=== PATIENT | male | born 1990 | race Caucasian/White ===

== ENCOUNTER 2016-09-25 14:10 | Emergency (ER) | payer BC, MEDICAID ==
[~2016-09-25] VITALS: Ht 177.8 cm; Wt 88.5 kg
[~2016-09-25 14:10] MED LIST: OMEPRAZOLE; VICODIN
[2016-09-25 14:27] VITALS: BP 160/105; PULSE 94; RESP 16; TEMP 97.6; O2SAT 97
--- NOTE | 2016-09-25 14:36 | NUR ---
Patient to ER bed 3 to gown for evaluation. Side rails up. Report given to CARMEL CEDILLO.
--- NOTE | 2016-09-25 14:50 | NUR ---
MD BOOTH AT BEDSIDE.
[2016-09-25 15:12] VITALS: BP 131/75; PULSE 73; RESP 17; TEMP 97.8; O2SAT 98
--- NOTE | 2016-09-25 15:12 | NUR ---
Patient given written and verbal discharge instructions and verbalizes understanding. ER MD Suggs discussed with patient the results and treatment provided. Patient in stable condition. ID arm band removed. Patient educated on pain management and to follow up with PMD. Pain Scale 0/10. Opportunity for questions provided and answered.
[2016-09-25] MEDS ORDERED: DIPH-TET-PERTUS Vaccine 0.5 ML VIAL (ADACEL) I.M. ONE (15:45)
--- NOTE | 2016-09-25 16:12 | NUR ---
Note undone in EDM - 09/25/16 at 1633 by TRISTON Patient given written and verbal discharge instructions and verbalizes understanding. ER MD Suggs discussed with patient the results and treatment provided. Patient in stable condition. ID arm band removed. Patient educated on pain management and to follow up with PMD. Pain Scale 0/10. Opportunity for questions provided and answered.
== END 2016-09-25 15:12 | disposition home or self-care (01) ==
LOC: SED 14:10
DX: S90.32XA Contusion of left foot, initial encounter (principal); R03.0 Elevated blood-pressure reading, without diagnosis of hypertension; W20.8XXA Other cause of strike by thrown, projected or falling object, initial encounter; Y93.89 Activity, other specified; Y99.8 Other external cause status; Y92.89 Other specified places as the place of occurrence of the external cause
CPT/HCPCS: 90715; 99284

== ENCOUNTER 2018-12-12 07:51 | Emergency (ER) | payer MEDICAID ==
[~2018-12-12] VITALS: Ht 177.8 cm; Wt 88.5 kg
[2018-12-12 07:54] VITALS: BP_SYST 147
[2018-12-12] MEDS ORDERED: ALBUTEROL SULFATE 0.083% 2.5 MG/3 ML VIAL.NEB INH ONE (08:30)
[2018-12-12 09:20] VITALS: BP_SYST 140
== END 2018-12-12 09:20 | disposition home or self-care (01) ==
LOC: SED 07:51
DX: J45.901 Unspecified asthma with (acute) exacerbation (principal); R03.0 Elevated blood-pressure reading, without diagnosis of hypertension; Z79.899 Other long term (current) drug therapy
CPT/HCPCS: 71045; 93005; 94640; 99283; J7613

== ENCOUNTER 2019-06-21 10:29 | Emergency (ER) | payer MEDICAID ==
[~2019-06-21] VITALS: Ht 175.3 cm; Wt 86.2 kg
[2019-06-21 10:44] VITALS: BP_SYST 145
[2019-06-21] MEDS ORDERED: ONDANSETRON HCL 4 MG/2 ML VIAL IM ONE (12:15)
[2019-06-21 12:27] VITALS: BP_SYST 135
== END 2019-06-21 12:25 | disposition home or self-care (01) ==
LOC: SED 10:29
DX: S62.142A Displaced fracture of body of hamate [unciform] bone, left wrist, initial encounter for closed fracture (principal); J45.909 Unspecified asthma, uncomplicated; R03.0 Elevated blood-pressure reading, without diagnosis of hypertension; Z79.899 Other long term (current) drug therapy; W22.01XA Walked into wall, initial encounter; Y93.89 Activity, other specified; Y92.89 Other specified places as the place of occurrence of the external cause; Y99.8 Other external cause status
CPT/HCPCS: 29125; 73130; 96372; 99283; J2405